=== PATIENT | female | born 1980 | race African-American/Black ===

== ENCOUNTER 2021-08-11 04:23 | Day surgery (SDC) | payer OTHER ==
[2021-07-27 14:34] VITALS: BMI 27.3
[2021-08-11 10:36] LABS: ALBUMIN 3.1 g/dl (3.4-5.0); BLOOD UREA NITROGEN 9.3 mg/dL (7-18)
[2021-08-11 10:39] LABS: CREATININE 0.9 mg/dL (0.55-1.3)
[2021-08-11 10:41] LABS: BILIRUBIN,TOTAL 0.4 mg/dL (0.2-1); TOT PROT 7.5 g/dl (6.4-8.2)
[2021-08-11] MEDS ORDERED: PROPOFOL 20 ML ONE (11:26)
[2021-08-11] MEDS ORDERED: MIDAZOLAM HCL 2 MG/2 ML SINGLE DOSE VIAL ONE (11:27)
[2021-08-11] MEDS ORDERED: GLYCOPYRROLATE 0.2 MG/1 ML VIAL ONE (11:28)
[2021-08-11] MEDS ORDERED: LIDOCAINE HCL/PF 2% SDV 5ML VIAL ONE (11:28)
[2021-08-11] MEDS ORDERED: SODIUM CHLORIDE 0.9% P/F 10 ML VIAL IJ ONE (11:38)
[2021-08-11] MEDS ORDERED: ceFAZolin SODIUM 1 GM VIAL ONE (11:38)
[2021-08-11] MEDS ORDERED: DEXAMETHASONE SOD PHOSPHATE 4 MG/1 ML VIAL ONE (11:40)
[2021-08-11] MEDS ORDERED: ceFAZolin SODIUM 1 GM VIAL IVPB ONE (11:41)
[2021-08-11] MEDS ORDERED: PROMETHAZINE HCL 25 MG/1 ML VIAL IVPB PRN (12:09)
[2021-08-11] MEDS ORDERED: ONDANSETRON 4 MG/2 ML VIAL IVPUSH PRN (12:09)
[2021-08-11] MEDS ORDERED: oxyCODONE HCL 5 MG TABLET PO PRN (12:09)
[2021-08-11] MEDS ORDERED: LACTATED RINGERS SOLUTION 1,000 ML IV SCH (12:15)
[2021-08-11] MEDS ORDERED: ACETAMINOPHEN 1000 MG/100 ML VIAL IVPB ONE ×2 (13:07→13:10)
[2021-08-11] MEDS ORDERED: oxyCODONE HCL 5 MG TABLET ONE (13:59)
[2021-08-12 16:02] VITALS: BP 122/78; PULSE 65; TEMP 97.5
== END 2021-08-11 19:00 | disposition home or self-care (01) ==
LOC: JASU-SURG 04:23
PROVIDERS: ATTEND Urology
PROC: 0TBB8ZX Excision of Bladder, Via Natural or Artificial Opening Endoscopic, Diagnostic (ICD-10-PCS; principal; 2021-08-11 11:00)
DX: N30.91 Cystitis, unspecified with hematuria (principal); R31.0 Gross hematuria
CPT/HCPCS: 36415; 80053; 84703; 88108; 88305-TC; 94760; J0131

== ENCOUNTER 2023-06-19 17:31 | Emergency (ER) | payer OTHER ==
[2023-06-19 17:55] VITALS: BP 142/99; PULSE 77; RESP 16; TEMP 98.9; BMI 27.3
[2023-06-19 18:24] LABS: HEMATOCRIT 33.7 % (32.4-45.2); HEMOGLOBIN 10.7 G/dL (10.7-15.3); MCH 24.8 pg (25.7-33.7); MCHC 31.8 g/dl (32.0-36.0); MEAN CELL VOLUME 77.9 fl (80-96); MEAN PLT VOLUME 9.6 fl (7.5-11.1); PLATELET COUNT 258.6 10^3/uL (134-434); RBC 4.33 10^6/uL (3.60-5.2); RDW 17.9 % (11.6-15.6); WHITE BLOOD COUNT 7.4 10^3/uL (4.0-10.8)
[2023-06-19 18:40] LABS: ALBUMIN 4.2 g/dl (3.4-5.0); BILIRUBIN,TOTAL 0.5 mg/dl (0.2-1); BLOOD UREA NITROGEN 16.4 mg/dl (7-18); CREATININE 0.9 mg/dl (0.6-1.3); POTASSIUM 3.8 mmol/L (3.5-5.1); SGOT/AST 23.4 U/L (15-37); SGPT/ALT 11.5 U/L (7-52); TOT PROT 7.4 g/dl (6.4-8.2)
[2023-06-19 20:52] LABS: EPITHELIAL CELLS FEW /hpf
== END 2023-06-19 20:17 | disposition home or self-care (01) ==
LOC: FER 17:31
DX: K92.1 Melena (principal)
CPT/HCPCS: 36415; 80053; 81003; 81015; 82272; 85027; 87086; 99283-25